=== PATIENT | female | born 1960 | race Caucasian/White ===

== ENCOUNTER 2016-12-04 22:08 | Emergency (ER) | payer MEDICARE, MEDICAID ==
[2016-12-04 22:24] VITALS: BP 172/77
--- OUTSIDE RECORDS SUMMARY | 2016-12-04 22:51 | XMS REPORT | Continuity of Care Document ---
:1960 Author Organization [facility] ([facility]) Address [address] [place] [address] Phone [phone] Care Team Providers Name Role Phone Vladimir Varela Primary Care Provider [phone] Source Comments This disclosure is being made pursuant to the Care Everywhere program, applicable federal and state laws, and may not contain all informaitonavailable regarding this patient.[facility] ([facility]) Active Allergies and Adverse Reactions No Known Allergies Current Medications Prescription Sig. Disp. Refills Start Date End Date Status fluticasone-salmeterol Use 1 Puff by Active (ADVAIR 250-50) inhalation every 12 inhaler hours. albuterol 90 Use 2 Puffs by Active mcg/Actuation inhaler inhalation every 4 hours as needed. amitriptyline 50 mg Take 50 mg by mouth at Active tablet bedtime. atorvastatin 20 mg Take 20 mg by mouth Active tablet every evening. dexlansoprazole Take 60 mg by mouth Active (DEXILANT) 60 mg CpDM daily. albuterol-ipratropium Use 3 mL by inhalation Active (DUONEB) 2.5-0.5 mg/3 every 6 hours as mL inhalation solution needed. ferrous sulfate (IRON) Take 325 mg by mouth Active 325 mg (65 mg iron) daily. tablet [id number] Take 1 Cap by mouth Active feine (FIORINAL) every 4 hours as 50-325-40 mg per needed. capsule propranolol (INDERAL Take 80 mg by mouth Active LA) 80 mg SR capsule daily. metoPROLol (TOPROL XL) Take 50 mg by mouth Active succinate 50 mg XL daily. tablet travoprost (TRAVATAN 1 Drop daily. Active Z) 0.004 % ophthalmic solution fenofibrate (TRICOR) Take 145 mg by mouth Active 145 mg tablet daily. cyanocobalamin inject 1,000 mcg Active (VITAMIN B-12) 1000 intramuscularly every mcg/mL injection month. Cholecalciferol, Take by mouth daily. Active Vitamin D3, (VITAMIN D3) 2,000 unit cap ALPRAZolam (XANAX) 1 Take 1 mg by mouth 3 Active mg tablet times daily as needed. Indications: ANXIETY Active Problems Problem Noted Date Myalgia and myositis, unspecified 05/29/2007 Social History Tobacco Use Types Packs/Day Years Used Date Never Assessed Last Filed Vital Signs Vital Sign Reading Time Taken Blood Pressure 149/75 09/01/2008 9:51 AM SIGNAL TESTER Pulse 80 09/01/2008 9:51 AM SIGNAL TESTER Temperature 35.1 C (95.18 F) 09/01/2008 9:51 AM SIGNAL TESTER Respiratory Rate 16 05/29/2007 10:50 AM CDT Height 1.651 m (5' 5") 09/17/2003 3:38 PM SIGNAL TESTER Weight 68.897 kg (151 lb 14.2 oz) 09/01/2008 9:51 AM SIGNAL TESTER Body Mass Index 25.28 09/01/2008 9:51 AM SIGNAL TESTER Oxygen Saturation - - Plan of Care Health Maintenance Due Date Last Done Comments Hepatitis B Vaccine (1 of 3 - Primary Series) 1960 Tdap Vaccine 1970 Lipid Disorder Screening 1977 MMR Vaccine 1977 Td Vaccine 1977 Cervical Cancer Screening 1989 Mammogram 1999 Colonoscopy 07/16/2009 Influenza Vaccine: Seasonal (#1) 03/19/2016 HCV Screening Completed 08/11/2001 Results from Last 3 Months Not on file
[2016-12-04] MEDS ORDERED: HYDROmorphone HCL 1 MG/ML DISP.SYRIN IM ONE (22:55)
--- NOTE | 2016-12-04 22:55 | ERNOTE ---
Lower Extremity HPI - Narrative Date of Service: 12/04/16 - General Lower Extremities Pain: hip: right Time Seen by Provider: 12/04/16 22:44 Source: patient Exam Limitations: no limitations - Immun/Allergies/Home Medications Immunizations: IMMUNIZATION HX Immunizations Up to Date Yes History of Influenza Vaccine Yes Hx Pneumococcal Vaccination No Allergies/Adverse Reactions: Allergies Allergy/AdvReac Type Severity Reaction Status Date / Time No Known Allergies Allergy Verified 11/23/16 13:15 Home Medications: HOME MEDICATIONS ALPRAZolam [Xanax] 1 mg PO TID PRN 05/06/15 [Last Taken Unknown] Warfarin Sodium [Coumadin] 5 mg PO DAILY 05/21/16 [Last Taken Unknown] Aspirin 81 mg PO DAILY 07/05/16 [Last Taken Unknown] Ferrous Sulfate 324 mg PO DAILY 07/05/16 [Last Taken Unknown] Metoprolol Succinate 100 mg PO DAILY 07/05/16 [Last Taken Unknown] Pramipexole Di-HCl [Pramipexole Dihydrochloride] 0.5 mg PO BID 07/05/16 [Last Taken Unknown] Rifampin [Rifadin] 150 mg PO BID 07/05/16 [Last Taken Unknown] Vancomycin HCl in Dextrose 5 % [Vancomycin 1.5 Gram/250 ml-D5w] 1,000 mg IV BID 07/05/16 [Last Taken Unknown] ALPRAZolam [Xanax] 1 mg PO TID PRN #100 tablet 07/07/16 [Last Taken Unknown] Albuterol Sulfate [Albuterol Sulfate 2.5 MG/0.5ML] 2.5 mg IH Q4H PRN #100 vial.neb 07/07/16 [Last Taken Unknown] Albuterol Sulfate/Ipratropium [Duoneb 2.5-0.5MG/3ML Soln] 3 ml IH QIDRT #120 nebu 07/07/16 [Last Taken Unknown] Cefuroxime Axetil [Ceftin] 500 mg PO BID #30 tab 07/07/16 [Last Taken Unknown] Furosemide [Lasix] 40 mg PO BID #60 tablet 07/07/16 [Last Taken Unknown] HYDROcodone/ACETAMINOPHEN [[place] 7.5-325 Tablet] 2 each PO PRN #60 tablet [Last Taken Unknown] Potassium Chloride 40 meq PO TID #90 tab.er.prt 07/07/16 [Last Taken Unknown] Ventolin 2 puff IH Q4H PRN #1 07/07/16 [Last Taken Unknown] - History of Present Illness Narrative: Severe right hip pain that is chronic and had been occurring for several years. The pain spiked this afternoon while she was getting IV antibiotics at this hospital. 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 Bhardwaj. As per Dr. Bhardwaj there has been an ongoing issues of the control of pain. The patient denies any fevers, chills, numbness or motor loss in the right leg/foot. The character of the pain is unchanged, however the intensity has increased. Occurred: just prior to arrival Method of Injury: Reports: other - chronic Modifying Factors - (Improves): Reports: other - nothing Modifying Factors - (Worsens): Reports: other - movement Associated Symptoms: Reports: unable to bear weight - uses a wheel chair Other Injuries: Reports: none Review of Systems - Review of Systems Constitutional: Present: no symptoms reported EYE: Present: no symptoms reported ENT: Present: no symptoms reported Respiratory: Present: no symptoms reported Cardiology: Present: no symptoms reported Gastrointestinal/Abdominal: Present: no symptoms reported Genitourinary: Present: no symptoms reported Musculoskeletal: Present: See HPI Skin: Present: no symptoms reported Neurological: Present: no symptoms reported Endocrine: Present: no symptoms reported Hematologic/Lymphatic: Present: no symptoms reported Psych: Present: no symptoms reported - Patient's Past Medical History Patient History - Medical: Anxiety, Arthritis, Depression, Migraines, Seizures, Other Patient History - Cardiac/Respiratory: COPD, Hypertension Patient History - Cancer: Kidney Patient History - Surgical Procedures: Colonoscopy, EGD, Hysterectomy, Total Hip Replacement Patient History - Other: None - Family History Mother Family History - Medical: Diabetes Type 2, Other Sister Family History - Medical: Other Father Family History - Cardiac/Respiratory: Coronary Heart Disease - Social History Living Situations: home Abuse History: No History of abuse Psych History: Hx of Anxiety, Hx of Depression Smoking Status: Current every day smoker Alcohol Use: none Drug Use: none, marijuana - Immunizations Immunizations Up to Date: Yes Hx Pneumococcal Vaccination: No History of Influenza Vaccine: Yes Physical Exam - Physical Exam General Appearance: Present: no apparent distress Eye Exam: Normal inspection: bilateral, PERRL: bilateral Ears, Nose, Throat: Present: normal ENT inspection Neck: Present: normal inspection Respiratory: Present: no respiratory distress Cardiovascular/Chest: Present: regular rate, rhythm Gastrointestinal/Abdominal: Present: nondistended Back Exam: Present: normal inspection Extremity Exam: Present: other - right hip- operative wound is healing. Any movement increases pain in the right hip. Neurological Exam: Present: alert, oriented, normal mood/affect Skin Exam: Present: normal color ED Progress - Vital Signs Patient's Vital Signs:: I have reviewed the patient's vital signs. Vital Signs: Vital Signs 12/04/16 22:08 Temperature 36.8 C Pulse Rate 76 Respiratory 18 Rate Blood Pressure 172/77 O2 Sat by Pulse 100 Oximetry - Progress/Reassessment Chief Complaint: Hip Pain/Injury Progress Note-Subjective: 12/05/16 05:17 Given Dilaudid 0.5 mg IM. Departure Clinical Impression: Chronic right hip pain - Departure Disposition: Home self-care Condition: Fair Instructions: Chronic Pain Print Language: Khmer Additional Instructions: Contact the [facility] [phone] for possible management of your pain. Referrals: Sebastián Bhardwaj MD [Staff Physician] -
== END 2016-12-04 23:28 | disposition home or self-care (01) ==
LOC: ER 22:08
DX: M25.551 Pain in right hip (principal); G89.29 Other chronic pain; Z85.528 Personal history of other malignant neoplasm of kidney; F17.210 Nicotine dependence, cigarettes, uncomplicated

== ENCOUNTER 2016-12-27 22:17 | Emergency (ER) | payer MEDICARE, MEDICAID ==
--- OUTSIDE RECORDS SUMMARY | 2016-12-27 22:33 | XMS REPORT | Continuity of Care Document ---
:1960 Author Organization [facility] ([facility]) Address [address] [place] [address] Phone [phone] Care Team Providers Name Role Phone Vladimir Varela Primary Care Provider [phone] Source Comments This disclosure is being made pursuant to the Care Everywhere program, applicable federal and state laws, and may not contain all informaitonavailable regarding this patient.[facility] ([facility]) Active Allergies and Adverse Reactions No Known [...] 325 mg (65 mg iron) daily. 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
[2016-12-27] MEDS ORDERED: KETOROLAC TROMETHAMINE 60 MG/2 ML VIAL IM ONE ×2 (22:49)
--- NOTE | 2016-12-27 22:49 | ERNOTE ---
Lower Extremity HPI - General Time Seen by Provider: 12/27/16 22:27 Source: patient Exam Limitations: no limitations - Immun/Allergies/Home Medications Immunizations: IMMUNIZATION HX Immunizations Up to Date Yes History of Influenza Vaccine Yes Hx Pneumococcal Vaccination No Allergies/Adverse Reactions: Allergies Allergy/AdvReac Type Severity Reaction Status Date / Time No Known Allergies Allergy Verified 12/27/16 22:30 Home Medications: HOME MEDICATIONS ALPRAZolam [Xanax] 1 mg PO TID PRN 05/06/15 [Last Taken Unknown] Warfarin Sodium [Coumadin] 5 mg PO DAILY 05/21/16 [Last Taken Unknown] Aspirin 81 mg PO DAILY 07/05/16 [Last Taken Unknown] Ferrous Sulfate 324 mg PO DAILY 07/05/16 [Last Taken Unknown] Metoprolol Succinate 100 mg PO DAILY 07/05/16 [Last Taken Unknown] Pramipexole Di-HCl [Pramipexole Dihydrochloride] 0.5 mg PO BID 07/05/16 [Last Taken Unknown] Rifampin [Rifadin] 150 mg PO BID 07/05/16 [Last Taken Unknown] Vancomycin HCl in Dextrose 5 % [Vancomycin 1.5 Gram/250 ml-D5w] 1,000 mg IV BID 07/05/16 [Last Taken Unknown] ALPRAZolam [Xanax] 1 mg PO TID PRN #100 tablet 07/07/16 [Last Taken Unknown] Albuterol Sulfate [Albuterol Sulfate 2.5 MG/0.5ML] 2.5 mg IH Q4H PRN #100 vial.neb 07/07/16 [Last Taken Unknown] Albuterol Sulfate/Ipratropium [Duoneb 2.5-0.5MG/3ML Soln] 3 ml IH QIDRT #120 nebu 07/07/16 [Last Taken Unknown] Cefuroxime Axetil [Ceftin] 500 mg PO BID #30 tab 07/07/16 [Last Taken Unknown] Furosemide [Lasix] 40 mg PO BID #60 tablet 07/07/16 [Last Taken Unknown] HYDROcodone/ACETAMINOPHEN [[place] 7.5-325 Tablet] 2 each PO PRN #60 tablet [Last Taken Unknown] Potassium Chloride 40 meq PO TID #90 tab.er.prt 07/07/16 [Last Taken Unknown] Ventolin 2 puff IH Q4H PRN #1 07/07/16 [Last Taken Unknown] Ibuprofen [Motrin] 800 mg PO TID PRN #15 tablet 12/27/16 [Last Taken Unknown] - History of Present Illness Narrative: Here for chronic right hip pain. pt has had surgery and is on Percocet. she gets her medication from her ortho specialist, Dr. Escalona. she has no new fall or trauma to the right hip. she is here for chronic right hip pain Review of Systems - Review of Systems Constitutional: Present: no symptoms reported EYE: Present: no symptoms reported ENT: Present: no symptoms reported Respiratory: Present: no symptoms reported Cardiology: Present: no symptoms reported Gastrointestinal/Abdominal: Present: no symptoms reported Genitourinary: Present: no symptoms reported Musculoskeletal: Present: See HPI Skin: Present: no symptoms reported Neurological: Present: no symptoms reported - Patient's Past Medical History Patient History - Medical: Anxiety, Arthritis, Depression, Migraines, Seizures, Other Patient History - Cardiac/Respiratory: Hypertension, Hyperlipidemia Patient History - Cancer: No Hx of Cancer Patient History - Surgical Procedures: Colonoscopy, EGD, Hysterectomy, Total Hip Replacement Patient History - Other: None - Family History Mother Family History - Medical: Diabetes Type 2, Other Sister Family History - Medical: Other Father Family History - Cardiac/Respiratory: Coronary Heart Disease - Social History Living Situations: home Abuse History: No History of abuse Psych History: Hx of Anxiety, Hx of Depression Smoking Status: Current every day smoker Patient requests Smoking Cessation Consult: No Initiate information on Smoking Cessation: No Alcohol Use: none Drug Use: none - Immunizations Immunizations Up to Date: Yes Hx Pneumococcal Vaccination: No History of Influenza Vaccine: Yes Physical Exam - Physical Exam General Appearance: Present: wd/wn, alert, no apparent distress Ears, Nose, Throat: Present: normal ENT inspection Neck: Present: normal inspection Respiratory: Present: no respiratory distress, normal breath sounds, no accessory muscle use, chest nontender, lungs clear Cardiovascular/Chest: Present: regular rate, rhythm, no murmur, normal peripheral pulses Back Exam: Present: normal inspection, normal range of motion, no CVA tenderness , no vertebral tenderness Extremity Exam: Present: normal inspection, other - wound noted on right hip. no other lesions, healed well. Just touching skin makes pt jump. Neurological Exam: Present: alert, oriented, normal mood/affect ED Progress - Vital Signs Patient's Vital Signs:: I have reviewed the patient's vital signs. Vital Signs: Vital Signs 12/27/16 22:27 Temperature 36.9 C Pulse Rate 89 Respiratory 20 Rate Blood Pressure 177/76 O2 Sat by Pulse 100 Oximetry - Progress/Reassessment Chief Complaint: Hip Pain/Injury Departure Clinical Impression: Chronic right hip pain - Departure Disposition: Home self-care Condition: Fair Instructions: Chronic Pain Prescriptions: Ibuprofen [Motrin] 800 mg PO TID PRN #15 tablet PRN Reason: Pain
[2016-12-27 23:57] VITALS: BP 189/74
== END 2016-12-27 23:14 | disposition home or self-care (01) ==
LOC: ER 22:17
DX: M25.551 Pain in right hip (principal); Z72.0 Tobacco use

== ENCOUNTER 2017-06-03 11:49 | Emergency (ER) | payer MEDICARE, MEDICAID ==
[2017-06-03] MEDS ORDERED: oxyCODONE HCL/ACETAMINOPHEN 1 TAB TABLET PO ONE (12:21)
[2017-06-03] MEDS ORDERED: oxyCODONE HCL/ACETAMINOPHEN 1 TAB TABLET ONE (12:25)
--- NOTE | 2017-06-03 12:27 | ERNOTE ---
Lower Extremity HPI - Narrative Date of Service: 06/03/17 - General Lower Extremities Pain: hip: right Time Seen by Provider: 06/03/17 12:13 Source: patient, RN notes reviewed, old records Exam Limitations: no limitations - Immun/Allergies/Home Medications Immunizations: IMMUNIZATION HX Immunizations Up to Date Yes History of Influenza Vaccine Yes Hx Pneumococcal Vaccination No Allergies/Adverse Reactions: Allergies Allergy/AdvReac Type Severity Reaction Status Date / Time No Known Allergies Allergy Verified 06/03/17 11:59 Home Medications: HOME MEDICATIONS Albuterol Sulfate [Albuterol Sulfate 2.5 MG/0.5ML] 2.5 mg IH Q4H PRN #100 vial.neb 07/07/16 [Last Taken Unknown] Albuterol Sulfate/Ipratropium [Duoneb 2.5-0.5MG/3ML Soln] 3 ml IH QIDRT #120 nebu 07/07/16 [Last Taken Unknown] Ventolin 2 puff IH Q4H PRN #1 07/07/16 [Last Taken Unknown] - Pain Score Pain Score #1 Pain Score: 10 - Right hip - History of Present Illness Narrative: 56 year old female presents to the ED for pain medication. She has chronic right hip pain and has had numerous surgeries. She just left the [place], where she was getting IV Daptomycin for septic arthritis in the hip. She reports that her doctor will no longer give her pain medication because it is chronic. She reports that she is trying to get into a pain clinic. She denies any recent injury. Prior Treament: Reports: recently seen, treated by physician, similar symptoms before Review of Systems - Review of Systems Constitutional: Present: no symptoms reported EYE: Present: no symptoms reported ENT: Present: no symptoms reported Respiratory: Present: no symptoms reported Cardiology: Present: no symptoms reported Gastrointestinal/Abdominal: Present: no symptoms reported Genitourinary: Present: no symptoms reported Musculoskeletal: Present: muscle pain, joint pain Skin: Absent: lesions, lumps, change in color Neurological: Present: no symptoms reported Endocrine: Present: no symptoms reported Hematologic/Lymphatic: Present: no symptoms reported Psych: Present: no symptoms reported - Patient's Past Medical History Patient History - Medical: Anxiety, Arthritis, Depression, Migraines, Seizures, Other Patient History - Cardiac/Respiratory: Hypertension, Hyperlipidemia Patient History - Cancer: No Hx of Cancer Patient History - Surgical Procedures: Colonoscopy, EGD, Hysterectomy, Total Hip Replacement Patient History - Other: None - Family History Mother Family History - Medical: Diabetes Type 2, Other Sister Family History - Medical: Other Father Family History - Medical: , Diabetes Type 2 Insulin Dependent, Renal Failure Family History - Cardiac/Respiratory: Coronary Heart Disease, Hypertension - Social History Living Situations: home Abuse History: No History of abuse Psych History: Hx of Anxiety, Hx of Depression Alcohol Use: none Drug Use: none - Immunizations Immunizations Up to Date: Yes Hx Pneumococcal Vaccination: No History of Influenza Vaccine: Yes Physical Exam - Physical Exam General Appearance: Present: wd/wn, alert, other - Tearful Respiratory: Present: no respiratory distress, normal breath sounds, no accessory muscle use, lungs clear Cardiovascular/Chest: Present: regular rate, rhythm, no murmur Neurological Exam: Present: alert, oriented, normal mood/affect Skin Exam: Present: normal color, warm/dry ED Progress - Vital Signs Patient's Vital Signs:: I have reviewed the patient's vital signs. Vital Signs: Vital Signs 06/03/17 11:54 Temperature 36.1 C L Pulse Rate 87 Respiratory 12 Rate Blood Pressure 124/70 O2 Sat by Pulse 100 Oximetry - Progress/Reassessment Chief Complaint: Hip Pain/Injury Progress:: Unchanged Plan - Plan Plan: Informed patient that just as her doctor will not prescribe medications for her chronic pain, the ER is also unable to meet this need for her. Dose of Percocet given in department but no medication prescribed. Departure Clinical Impression: Chronic right hip pain - Departure Disposition: Home Follow Up Needed Condition: Stable Instructions: Chronic Pain Additional Instructions: Establish with a pain clinic to manage your chronic pain
[2017-06-03 14:53] VITALS: BP 140/61
== END 2017-06-03 13:55 | disposition home or self-care (01) ==
LOC: ER 11:49
DX: M25.551 Pain in right hip (principal); G89.29 Other chronic pain; M19.90 Unspecified osteoarthritis, unspecified site; I10 Essential (primary) hypertension

== ENCOUNTER 2017-06-26 19:58 | Emergency (ER) | payer MEDICARE, MEDICAID ==
[2017-06-26] MEDS ORDERED: NALBUPHINE HCL 20 MG/ML AMPUL IM ONE (20:35)
[2017-06-26] MEDS ORDERED: PROMETHAZINE HCL 25 MG/ML AMPUL IM ONE (20:35)
[2017-06-26] MEDS ORDERED: NALBUPHINE HCL 20 MG/ML AMPUL ONE (20:42)
[2017-06-26] MEDS ORDERED: PROMETHAZINE HCL 25 MG/ML AMPUL ONE (20:43)
--- NOTE | 2017-06-26 20:43 | ERNOTE ---
Lower Extremity HPI - General Lower Extremities Pain: hip: right Time Seen by Provider: 06/26/17 20:30 Source: patient Exam Limitations: no limitations - Immun/Allergies/Home Medications Immunizations: IMMUNIZATION HX Immunizations Up to Date Yes History of Influenza Vaccine No Hx Pneumococcal Vaccination No Allergies/Adverse Reactions: Allergies Allergy/AdvReac Type Severity Reaction Status Date / Time No Known Allergies Allergy Verified 06/03/17 11:59 Home Medications: HOME MEDICATIONS Albuterol Sulfate [Albuterol Sulfate 2.5 MG/0.5ML] 2.5 mg IH Q4H PRN #100 vial.neb 07/07/16 [Last Taken Unknown] Albuterol Sulfate/Ipratropium [Duoneb 2.5-0.5MG/3ML Soln] 3 ml IH QIDRT #120 nebu 07/07/16 [Last Taken Unknown] Ventolin 2 puff IH Q4H PRN #1 07/07/16 [Last Taken Unknown] - History of Present Illness Narrative: 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 She has just completed a course of daptomycin for this infection and will be undergoing another hip replacement in 2 days. She states she has hip pain and muscle spasms. She states that her orthopedic physician has weaned her off rx pain medications. She states that she takes ibuprofen daily for her pain but this is not sufficient. Occurred: other - chronic Prior Treament: Reports: recently seen, treated by physician Review of Systems - Review of Systems EYE: Present: no symptoms reported ENT: Present: no symptoms reported Respiratory: Absent: shortness of breath Cardiology: Absent: chest pain Gastrointestinal/Abdominal: Present: no symptoms reported Genitourinary: Present: no symptoms reported Musculoskeletal: Present: See HPI, muscle pain - and spasm Skin: Present: no symptoms reported Neurological: Absent: numbness Endocrine: Present: no symptoms reported Hematologic/Lymphatic: Present: no symptoms reported Psych: Present: no symptoms reported - Patient's Past Medical History Patient History - Medical: Anxiety, Arthritis, Depression, Migraines, Seizures, Other Patient History - Cardiac/Respiratory: Hypertension, Hyperlipidemia Patient History - Cancer: No Hx of Cancer Patient History - Surgical Procedures: Colonoscopy, EGD, Hysterectomy, Total Hip Replacement Patient History - Other: None LMP (females 10-50): hysterectomy - Family History Mother Family History - Medical: Diabetes Type 2, Other Sister Family History - Medical: Other Father Family History - Medical: , Diabetes Type 2 Insulin Dependent, Renal Failure Family History - Cardiac/Respiratory: Coronary Heart Disease, Hypertension - Social History Living Situations: significant other Abuse History: No History of abuse Psych History: Hx of Anxiety, Hx of Depression Smoking Status: Current every day smoker Have you smoked in the past 12 months: Yes Do you dip or chew tobacco: No Alcohol Use: none Drug Use: none - Immunizations Immunizations Up to Date: Yes Hx Pneumococcal Vaccination: No History of Influenza Vaccine: No Physical Exam - Physical Exam General Appearance: Present: wd/wn, alert, mild distress Head Exam: Present: normal inspection, no evidence of injury Neck: Present: normal inspection Respiratory: Present: no respiratory distress, no accessory muscle use Extremity Exam: Present: no edema, other - minimal tenderness in bilateral hips where her chronic pain resides. Absent: joint swelling, extremity edema Neurological Exam: Present: alert, oriented, normal mood/affect, no motor/ sensory deficits Skin Exam: Present: normal color, warm/dry ED Progress - Vital Signs Vital Signs: Vital Signs 06/26/17 20:03 Temperature 36.3 C L Pulse Rate 89 Respiratory 16 Rate Blood Pressure 132/68 O2 Sat by Pulse 100 Oximetry - Progress/Reassessment Chief Complaint: Hip Pain/Injury Progress:: Improved Progress Note-Subjective: 06/26/17 21:16 Pain much improved. Departure Clinical Impression: Chronic right hip pain - Departure Disposition: Home Follow Up Needed Condition: Good Instructions: Hip Pain Additional Instructions: Follow up with orthopedics as scheduled for surgery. use tylenol 1000 mg three times a day to help with pain until surgery
[2017-06-26 21:20] VITALS: BP 116/70
== END 2017-06-26 21:18 | disposition home or self-care (01) ==
LOC: ER 19:58
DX: M25.551 Pain in right hip (principal); G89.29 Other chronic pain; F17.200 Nicotine dependence, unspecified, uncomplicated; Z96.641 Presence of right artificial hip joint

== ENCOUNTER 2017-07-08 10:42 | Emergency (ER) | payer MEDICARE, MEDICAID ==
[2017-07-08] MEDS ORDERED: oxyCODONE HCL/ACETAMINOPHEN 1 TAB TABLET PO ONE (11:12)
[2017-07-08] MEDS ORDERED: PROMETHAZINE HCL 25 MG/ML AMPUL IM ONE (11:12)
[2017-07-08] MEDS ORDERED: oxyCODONE HCL/ACETAMINOPHEN 1 TAB TABLET ONE (11:17)
[2017-07-08] MEDS ORDERED: PROMETHAZINE HCL 25 MG/ML AMPUL ONE (11:17)
--- NOTE | 2017-07-08 11:28 | ERNOTE ---
Lower Extremity HPI - Narrative Date of Service: 07/08/17 - General Lower Extremities Pain: hip: right Time Seen by Provider: 07/08/17 11:06 Source: patient, family, RN notes reviewed, old records Exam Limitations: no limitations - Immun/Allergies/Home Medications Immunizations: IMMUNIZATION HX Immunizations Up to Date Yes History of Influenza Vaccine Yes Hx Pneumococcal Vaccination No Allergies/Adverse Reactions: Allergies Allergy/AdvReac Type Severity Reaction Status Date / Time No Known Allergies Allergy Verified 07/08/17 11:01 - History of Present Illness Narrative: 56 year old female presents for increased drainage from her right hip wound. She had a temporary prosthesis placed by Dr. Bhardwaj on 07/03. She is to have a total hip replacement on 07/10 if she is doing well at that time. She is receiving IV Daptomycin through the [facility] and is on an unknown oral antibiotic. She has been taking percocet for pain but has not taken any today. She reports feeling feverish and nauseous for the past few days. Date (Duration): 07/03/17 Method of Injury: Reports: no apparent injury Prior Treament: Reports: recently seen, treated by physician, recently hospitalized Review of Systems - Review of Systems Constitutional: Present: malaise. Absent: chills EYE: Present: no symptoms reported ENT: Present: no symptoms reported Respiratory: Absent: shortness of breath, cough Cardiology: Absent: chest pain, syncope Gastrointestinal/Abdominal: Present: nausea, vomiting. Absent: abdominal pain Genitourinary: Absent: frequency, dysuria Musculoskeletal: Present: joint pain. Absent: joint swelling Skin: Absent: rash, lesions, lumps, change in color Neurological: Absent: weakness, numbness, tingling Endocrine: Present: no symptoms reported Hematologic/Lymphatic: Absent: easy bruising, easy bleeding Psych: Present: no symptoms reported - Patient's Past Medical History Patient History - Medical: Anxiety, Arthritis, Depression, Migraines, Seizures, Other Patient History - Cardiac/Respiratory: Hypertension, Hyperlipidemia Patient History - Cancer: No Hx of Cancer Patient History - Surgical Procedures: Colonoscopy, EGD, Hysterectomy, Total Hip Replacement Patient History - Other: None - Family History Mother Family History - Medical: Diabetes Type 2, Other Sister Family History - Medical: Other Father Family History - Medical: , Diabetes Type 2 Insulin Dependent, Renal Failure Family History - Cardiac/Respiratory: Coronary Heart Disease, Hypertension - Social History Living Situations: home Abuse History: No History of abuse Psych History: Hx of Anxiety, Hx of Depression Smoking Status: Current every day smoker Have you smoked in the past 12 months: Yes - Immunizations Immunizations Up to Date: Yes Hx Pneumococcal Vaccination: No History of Influenza Vaccine: Yes Physical Exam - Physical Exam General Appearance: Present: wd/wn, alert, other - Disheveled, appears to not feel well Head Exam: Present: normal inspection Neck: Present: normal inspection, nontender, supple Respiratory: Present: no respiratory distress, no accessory muscle use, lungs clear, expiration (prolonged) Cardiovascular/Chest: Present: regular rate, rhythm, no murmur, normal peripheral pulses Extremity Exam: Present: normal except - - Right hip, pain with weight bearing, diffusely tender to palpation Neurological Exam: Present: alert, oriented, normal mood/affect, no motor/ sensory deficits Skin Exam: Present: warm/dry, pallor, other - Right hip dressing saturated with serosanguinous drainage, wound is well approximated except for a pin-hole opening that is draining, lenny are intact, surrounding skin is pink but only where saturated dressing had been covering it ED Progress - Results and Orders Patient's Lab Results:: I have reviewed the patient's lab results. - Vital Signs Patient's Vital Signs:: I have reviewed the patient's vital signs. Vital Signs: Vital Signs 07/08/17 10:55 Temperature 37.4 C Pulse Rate 100 Respiratory 17 Rate Blood Pressure 131/66 O2 Sat by Pulse 99 Oximetry - Progress/Reassessment Chief Complaint: Hip Pain/Injury Progress:: Improved Plan - Plan Plan: Percocet and Phenergan given, patient slept while in department. Dressing changed by nursing staff 1 unit of blood ordered to be given in [facility] while she there for today's dose of antibiotics Contacted Dr. Bhardwaj regarding wound drainage and anemia, he agrees with plan and patient will see him for follow up as scheduled Departure Clinical Impression: Hip pain, right, Anemia due to acute blood loss, Wound drainage - Departure Disposition: Home Follow Up Needed Condition: Fair Instructions: Anemia, Nonspecific Additional Instructions: Continue antibiotics in the [facility], they will be changing your dressing each day while you are there Continue your current medications See Dr. Bhardwaj as scheduled Referrals: Sebastián Bhardwaj MD [Staff Physician] -
[2017-07-08 11:36] LABS: Mean Cell Volume 86.3 fl (78-100); Mean Corpuscular Hemoglobin 27.7 pg (27-31); Mean Corpuscular Hgb Conc 32.1 g/dl (32-36); Mean Platelet Volume 9.2 fl (6.0-9.5); Neutrophil # 4.8 K/mm3 (1.3-6.0); Neutrophil % 71.1 % (42-75.0); Platelet Count 328 K/mm3 (150-450); Red Blood Count 2.71 M/mm3 (4.2-5.4); Red Cell Distribution Width 16.7 % (11.5-14.0); White Blood Count 6.8 K/mm3 (4.0-10.5)
[2017-07-08 11:37] LABS: Hemoglobin 7.5 gm/dL (12.5-16.0)
[2017-07-08 11:38] LABS: Hematocrit 23.4 % (37.0-47.0)
[2017-07-08 11:45] LABS: Albumin * 2.3 gm/dl (3.4-5.0); Anion Gap 14.7 mmol/L (6.8-13.8); BUN/Creatinine Ratio 11.5 (9.0-21.6); Bilirubin, Total 0.4 mg/dL (0.0-1.1); Ca. Corrected For Albumin 10.8 mg/dL (8.4-10.2); Calcium * 9.8 mg/dL (7.9-10.9); Carbon Dioxide 27.4 mmol/L (24-32.6); Potassium 4.1 mmol/L (3.4-4.6); Total Protein 6.9 gm/dL (6.2-8.2)
[2017-07-08 14:10] VITALS: BP 120/66
== END 2017-07-08 13:57 | disposition home or self-care (01) ==
LOC: ER 10:42
DX: T81.89XA Other complications of procedures, not elsewhere classified, initial encounter (principal); M25.551 Pain in right hip; D62 Acute posthemorrhagic anemia; F17.200 Nicotine dependence, unspecified, uncomplicated

== ENCOUNTER 2017-07-21 10:38 | Emergency (ER) | payer MEDICARE, MEDICAID ==
[2017-07-21] MEDS ORDERED: oxyCODONE HCL/ACETAMINOPHEN 1 TAB TABLET PO ONE (11:55)
[2017-07-21] MEDS ORDERED: oxyCODONE HCL/ACETAMINOPHEN 1 TAB TABLET ONE (11:57)
[2017-07-21 12:01] VITALS: BP 184/84
--- NOTE | 2017-07-21 12:02 | ERNOTE ---
Lower Extremity HPI - General Lower Extremities Pain: hip: right Time Seen by Provider: 07/21/17 11:17 Source: patient Exam Limitations: no limitations - Immun/Allergies/Home Medications Immunizations: IMMUNIZATION HX Immunizations Up to Date Yes History of Influenza Vaccine Yes Hx Pneumococcal Vaccination No Allergies/Adverse Reactions: Allergies Allergy/AdvReac Type Severity Reaction Status Date / Time No Known Allergies Allergy Verified 07/21/17 10:51 - History of Present Illness Narrative: Patient was being helped out of the car and her right hip inadvertently got strained. This is the site of multiple surgeries, all of them starting with a failed hip surgery and the source of considerable discomfort. Occurred: this morning Location of Incident: home Method of Injury: Reports: twisted Loss of Consciousness: Reports: no loss of consciousness Modifying Factors - (Improves): Reports: pain medication Modifying Factors - (Worsens): Reports: movement Associated Symptoms: Reports: unable to bear weight - chronic Other Injuries: Reports: none Prior Treament: Reports: recently seen, treated by physician, similar symptoms before, currently on antibiotics Review of Systems - Review of Systems Constitutional: Present: See HPI EYE: Present: no symptoms reported ENT: Present: no symptoms reported Respiratory: Present: no symptoms reported Cardiology: Present: no symptoms reported Gastrointestinal/Abdominal: Present: no symptoms reported Genitourinary: Present: no symptoms reported Musculoskeletal: Present: joint pain - chronic right hip Skin: Present: no symptoms reported Neurological: Present: no symptoms reported Endocrine: Present: no symptoms reported Hematologic/Lymphatic: Present: no symptoms reported Psych: Present: no symptoms reported - Patient's Past Medical History Patient History - Medical: Anxiety, Arthritis, Depression, Migraines, Seizures, Other Patient History - Cardiac/Respiratory: Hypertension, Hyperlipidemia Patient History - Cancer: No Hx of Cancer Patient History - Surgical Procedures: Colonoscopy, EGD, Hysterectomy, Total Hip Replacement Patient History - Other: None - Family History Mother Family History - Medical: Diabetes Type 2, Other Sister Family History - Medical: Other Father Family History - Medical: , Diabetes Type 2 Insulin Dependent, Renal Failure Family History - Cardiac/Respiratory: Coronary Heart Disease, Hypertension - Social History Living Situations: home Abuse History: No History of abuse Psych History: Hx of Anxiety, Hx of Depression - Immunizations Immunizations Up to Date: Yes Hx Pneumococcal Vaccination: No History of Influenza Vaccine: Yes Physical Exam - Physical Exam General Appearance: Present: wd/wn, alert, moderate distress Head Exam: Present: normal inspection, no evidence of injury Eye Exam: Normal inspection: bilateral, PERRL: bilateral Ears, Nose, Throat: Present: normal ENT inspection, H, normal pharynx Neck: Present: normal inspection, nontender Respiratory: Present: no respiratory distress, normal breath sounds, no accessory muscle use, chest nontender, lungs clear Cardiovascular/Chest: Present: regular rate, rhythm, no murmur, normal peripheral pulses Gastrointestinal/Abdominal: Present: normal bowel sounds, nontender, nondistended, soft, no organomegaly Rectal Exam: Present: deferred Back Exam: Present: normal inspection, normal range of motion Extremity Exam: Present: no edema, decreased range of motion, other - chronic pain around the right hip secondary to osteomyelitis and failed hip surgery Neurological Exam: Present: alert, oriented, normal mood/affect Skin Exam: Present: normal color, warm/dry Lymphatic Exam: Present: no adenopathy ED Progress - Vital Signs Patient's Vital Signs:: I have reviewed the patient's vital signs. Vital Signs: Vital Signs 07/21/17 10:46 Temperature 37.1 C Pulse Rate 101 H Respiratory 12 Rate Blood Pressure 125/102 O2 Sat by Pulse 100 Oximetry - X-Ray X-Ray #1 X-Ray: hip Interpretation: Interp. by me - Progress/Reassessment Chief Complaint: Hip Pain/Injury Plan - Plan Plan: Patient was apprised that the hip was in reasonable spot and that no intervention is needed at this time. Patient was given 1 Percocet and she agrees to call her orthopedic surgeon in the morning for any further pain medicines or interventions as he deems necessary. Departure Clinical Impression: Hip pain, right - Departure Disposition: Home self-care Condition: Good Instructions: Hip Pain, Bone and Joint Infections, Adult
== END 2017-07-21 12:44 | disposition home or self-care (01) ==
LOC: ER 10:38
DX: M25.551 Pain in right hip (principal); F41.9 Anxiety disorder, unspecified; I10 Essential (primary) hypertension; F32.9 Major depressive disorder, single episode, unspecified

== ENCOUNTER 2017-09-22 05:51 | Emergency (ER) | payer MEDICARE, MEDICAID ==
[2017-09-22] MEDS ORDERED: KETOROLAC TROMETHAMINE 60 MG/2 ML VIAL IM ONE ×2 (06:08→06:09)
[2017-09-22] MEDS ORDERED: METOPROLOL TARTRATE 25 MG TABLET ONE (06:09)
[2017-09-22] MEDS ORDERED: METOPROLOL TARTRATE 25 MG TABLET PO ONE (06:09)
--- NOTE | 2017-09-22 06:22 | ERNOTE ---
Lower Extremity HPI - General Lower Extremities Pain: hip: right Time Seen by Provider: 09/22/17 05:55 Source: patient Exam Limitations: no limitations - Immun/Allergies/Home Medications Immunizations: IMMUNIZATION HX Immunizations Up to Date Yes History of Influenza Vaccine Yes Hx Pneumococcal Vaccination Yes Allergies/Adverse Reactions: Allergies Allergy/AdvReac Type Severity Reaction Status Date / Time No Known Allergies Allergy Verified 09/22/17 06:07 Home Medications: HOME MEDICATIONS ALPRAZolam [Xanax] 1 mg PO TID PRN 07/21/17 [Last Taken Unknown] Albuterol Sulfate [Proair Hfa] 2 puff IH QID PRN 07/21/17 [Last Taken Unknown] Albuterol Sulfate [Ventolin HFA] 2 puff IH Q34H 07/21/17 [Last Taken Unknown] Butalb/Acetaminophen/Caffeine [Fioricet 50-300-40 mg Capsule] 1 each PO Q46H 11/02 [Last Taken Unknown] Fexofenadine HCl [[facility] Allergy] 60 mg PO BID 07/21/17 [Last Taken Unknown] Fluticasone Propionate [Flovent Hfa] 2 puff PO BID 07/21/17 [Last Taken Unknown] Fluticasone/Salmeterol [Advair 250-50 Diskus] 1 puff IH BID 07/21/17 [Last Taken Unknown] HYDROcodone/ACETAMINOPHEN [[place] 5-325 Tablet] 1 - 2 tab PO TID PRN 07/21/17 [ Last Taken Unknown] Ipratropium/Albuterol Sulfate [Iprat-Albut 0.5-3(2.5) mg/3 ml] 3 ml IH QID 07/21 [Last Taken Unknown] Metoprolol Succinate [Toprol Xl] 100 mg PO DAILY 07/21/17 [Last Taken Unknown] Omeprazole [Prilosec] 20 mg PO DAILY 07/21/17 [Last Taken Unknown] Potassium Chloride [Klor-Con 10] 10 meq PO DAILY 07/21/17 [Last Taken Unknown] Pramipexole Di-HCl [Mirapex] 0.25 mg PO HS 07/21/17 [Last Taken Unknown] Pramipexole Di-HCl [Pramipexole Dihydrochloride] 0.5 mg PO BID 07/21/17 [Last Taken Unknown] Prochlorperazine Maleate [Compazine] 10 mg PO QID PRN 07/21/17 [Last Taken Unknown] Amlodipine Besylate 5 mg PO DAILY #30 tablet 09/22/17 [Last Taken Unknown] Ibuprofen 400 mg PO Q6H PRN #40 tablet 09/22/17 [Last Taken Unknown] - History of Present Illness Narrative: Patient has chronic pain in her right hip, has had multiple revisions, the last one at the end of July 2017. She ran out of her percocet a week ago. Over the last couple of days she has had increased pain, denies any injury but has been more active. She currently has not seen a PCP in a while, ran out of her blood pressure medications a few months ago. Modifying Factors - (Improves): Reports: rest Modifying Factors - (Worsens): Reports: movement Associated Symptoms: Denies: chest pain, vomiting/diarrhea, bowel/bladder problems Other Injuries: Reports: none Review of Systems - Review of Systems Constitutional: Absent: fever, chills ENT: Absent: nose congestion, sore throat Respiratory: Absent: shortness of breath, cough Cardiology: Absent: chest pain Gastrointestinal/Abdominal: Absent: nausea, abdominal pain Genitourinary: Present: no symptoms reported Musculoskeletal: Present: See HPI Neurological: Absent: weakness, numbness - Patient's Past Medical History Patient History - Medical: Anxiety, Arthritis, Chronic Pain, Depression, Migraines, Seizures, Other Patient History - Cardiac/Respiratory: Hypertension, Hyperlipidemia Patient History - Cancer: Kidney Patient History - Surgical Procedures: Cancer Surgery, Colonoscopy, EGD, Hysterectomy, Total Hip Replacement, Other, Orthopedic Patient History - Other: None - Family History Mother Family History - Medical: Diabetes Type 2, Other Sister Family History - Medical: Other Father Family History - Medical: , Diabetes Type 2 Insulin Dependent, Renal Failure Family History - Cardiac/Respiratory: Coronary Heart Disease, Hypertension - Social History Living Situations: other Abuse History: No History of abuse Psych History: Hx of Anxiety, Hx of Depression Smoking Status: Current every day smoker Have you smoked in the past 12 months: Yes Do you dip or chew tobacco: No Patient requests Smoking Cessation Consult: No Initiate information on Smoking Cessation: No Alcohol Use: none Drug Use: marijuana - Immunizations Immunizations Up to Date: Yes Hx Pneumococcal Vaccination: Yes History of Influenza Vaccine: Yes Physical Exam - Physical Exam General Appearance: Present: wd/wn, alert, no apparent distress Respiratory: Present: no respiratory distress, normal breath sounds, lungs clear Cardiovascular/Chest: Present: regular rate, rhythm, no murmur Extremity Exam: Present: normal except - - well healed wound over right lateral thigh, patient complains of pain on ROM, normal range of motion Neurological Exam: Present: alert, oriented, normal mood/affect, no motor/ sensory deficits Skin Exam: Present: normal color, warm/dry ED Progress - Vital Signs Patient's Vital Signs:: I have reviewed the patient's vital signs. Vital Signs: Vital Signs 09/22/17 05:56 Temperature 36.3 C L Pulse Rate 92 Respiratory 16 Rate Blood Pressure 192/67 O2 Sat by Pulse 100 Oximetry - Progress/Reassessment Chief Complaint: Hip Pain/Injury Progress Note-Subjective: 09/22/17 06:55 pain better after toradol, patient was seen walking around without much sign of discomfort discussed need to follow up with PCP and get back on her blood pressure meds patient denies headache, states that she can check her blood pressure at home Departure Clinical Impression: Chronic pain Qualifiers: Chronic pain type: other chronic pain Qualified Code(s): G89.29 - Other chronic pain - Departure Disposition: Home self-care Condition: Good Instructions: Chronic Pain Additional Instructions: follow up with your orthopedic doctor for your hip follow up with your primary care doctor for your blood pressure Referrals: Jerman Escalona MD [Primary Care Provider] - Prescriptions: Amlodipine Besylate 5 mg PO DAILY #30 tablet Ibuprofen 400 mg PO Q6H PRN #40 tablet PRN Reason: Pain
[2017-09-22 07:03] VITALS: BP 193/85
== END 2017-09-22 07:03 | disposition home or self-care (01) ==
LOC: ER 05:51
DX: F17.200 Nicotine dependence, unspecified, uncomplicated; M25.551 Pain in right hip; G89.29 Other chronic pain